=== PATIENT | male | born 1990 | race Caucasian/White ===

== ENCOUNTER 2018-07-20 03:28 | Emergency (ER) | payer SELFPAY ==
[2018-07-20 03:35] VITALS: BP 132/85
--- NOTE | 2018-07-20 03:39 | ER Report ---
History and Physical Time Seen By MD: 03:35 Hx. of Stated Complaint: PATIENT WAS PULLED OVER BY SO HPI/ROS CHIEF COMPLAINT: Abdominal pain HISTORY OF PRESENT ILLNESS: 28-year-old male brought in by EMS with left upper quadrant abdominal pain. Patient was pulled over by medical information officer on during the search of his person. He collapses to the ground. Apparently he was hiding some meth amphetamine in his clothing. Patient was brought in complaining of left upper quadrant abdominal pain. Patient claims he has pancreatic cancer. He's having severe pain in his left upper quadrant noted. This occurred until after he was pulled over by police officers. On arrival, patient's refusing all care. Patient is suspected as malingering. REVIEW OF SYSTEMS: Respiratory: No cough, no dyspnea. Cardiovascular: No chest pain, no palpitations. Gastrointestinal: As above Musculoskeletal: No back pain. Allergies: Uncoded Allergies: UNKNOWN (Allergy, Unknown, 07/20/18) Home Meds Unable to Obtain Active Prescriptions or Reported Meds Unable To Obtain Past Medical: Refused Reviewed Nurses Notes: Yes Old Medical Records Reviewed: Yes Constitutional Vital Sign - Last 24 Hours 07/20/18 03:35 Temp 98.9 Pulse 116 Resp 24 B/P (MAP) 132/85 Pulse Ox 97 O2 Delivery Room Air Physical Exam General Appearance: The patient is alert, has no immediate need for airway protection and no current signs of toxicity. Initially on arrival, patient was appeared as passed out. Subsequently, he was complaining of left upper quadrant pain. Later, patient was noted to be resting quietly after refusing care and he was informed that he would be medically cleared for [facility]. Eyes: Pupils equal and round no injection. Respiratory: Chest is non tender, lungs are clear to auscultation. Cardiac: regular rate and rhythm Gastrointestinal: Abdomen is soft and non tender, no masses, bowel sounds normal. Musculoskeletal: Neck: Neck is supple and non tender. Extremities have full range of motion and are non tender. Skin: No rashes or lesions. DIFFERENTIAL DIAGNOSIS: After history and physical exam differential diagnosis was considered for abdominal pain including but not limited to appendicitis, cholecystitis, gastritis and urinary tract infection.,? Malingering Medical Decision Making ED Course/Re-evaluation ED Course Patient was admitted to an examination room. H&P was done. The differential diagnosis was considered. On clinical examination. Patient has stable vital signs on arrival. He appears to be having pain out of proportion to clinical findings. He is thrashing about in the gurney, holding his left upper quadrant abdomen. Patient initially presented unresponsive with EMS. Subsequently he is acting as if he has severe left upper quadrant pain, claiming that he has pancreatic cancer and that he needs help. Patient's refusing IV blood draw or urinalysis. It is explained to him that we cannot help him if he would allow us to perform diagnostic studies and administered medications through the IV. He was also informed a urine drug screen will be performed to rule out any drug abuse, prior to administering pain relievers. Patient refuses all care. Requesting to be sent to [facility]. Patient's medically cleared for [facility] admission. Decision to Disposition Date: Jul 20, 2018 Decision to Disposition Time: 03:39 Depart Departure Latest Vital Signs Vital Signs Date Time Temp Pulse Resp B/P (MAP) Pulse Ox O2 Delivery O2 Flow Rate FiO2 07/20/18 03:35 98.9 116 24 132/85 97 Room Air Impression: Primary Impression: Medical clearance for incarceration Additional Impressions: Left upper quadrant abdominal pain of unknown etiology Malingering Condition: Improved [facility] F New Scripts Unable to Obtain Active Prescriptions or Reported Meds Patient Instructions: GENERAL ER DISCHARGE INSTRUCTIONS Additional Instructions: Medically cleared for [facility] admission Problem Qualifiers NALINI PATEL DO Jul 20, 2018 03:39
== END 2018-07-20 03:46 ==
LOC: ER 03:31
DX: R10.12 Left upper quadrant pain (principal); Z76.5 Malingerer [conscious simulation]
CPT/HCPCS: 99281

== ENCOUNTER → 2018-07-20 | Outpatient (CLI) | payer SELFPAY | LOC: AMB 03:09 | PROVIDERS: ATTEND Nurse Practitioner | DX: R40.4 Transient alteration of awareness (principal) | CPT/HCPCS: A0425; A0429 ==